=== PATIENT | female | born 1965 ===

== ENCOUNTER 2025-01-23 15:38 | Emergency (ER) | payer MEDICAID, SELFPAY ==
--- NOTE | ~2025-01-23 | XR_ITS ---
EXAMINATION: 2 view XR CHEST CLINICAL INFORMATION: pain COMPARISON: December 23, 2018 TECHNIQUE: 2 views of the chest were obtained. FINDINGS: No significant abnormality is noted involving the heart, lungs, mediastinum, bony thorax or soft tissues. XR/XR chest 2V IMPRESSION: Unremarkable examination. Electronically signed by: Brian Durham MD 01/23/2025 04:34 PM EDT
[2025-01-23 15:56] VITALS: BP 134/68; PULSE 90; RESP 22; TEMP 36.6; O2SAT 98; BMI 24.8
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
[2025-01-23 16:28] LABS: MANUAL DIFF FLAG NO
[2025-01-23 16:30] LABS: Hematocrit 34.8 % (37.0-47.0); Hemoglobin 11.8 g/dl (12.0-16.0); Imm Gran Abs Auto 0.01 X10*3/uL (0.00-0.03); Imm Gran Pct Auto 0.1 % (0.0-0.4); Lymphocytes Absolute Auto 3.3 X10*3/uL (1.2-4.9); Mean Corpuscular HGB Conc 33.9 g/dl (31.0-35.0); Mean Corpuscular Hemoglobin 31.5 pg (27.0-33.0); Mean Corpuscular Volume 92.8 fL (80.0-98.0); NRBC Abs Auto 0.000 X10*3/uL (0.0-0.012); NRBC Pct Auto 0.0 /100WBC (0.0-0.2); Platelet Count 293 X10*3/uL (160-400); Red Blood Count 3.75 X10*6/uL (4.20-5.50); White Blood Count 7.0 X10*3/uL (4.8-10.8)
[2025-01-23 16:43] LABS: Anion Gap 11 (12-20); Blood Urea Nitrogen 15 mg/dL (9-16); Calcium 8.9 mg/dL (8.4-10.2); Carbon Dioxide 26 mmol/L (22-29); Chloride 112 mmol/L (96-108); Creatinine Clr Calc Pharmacy 106.3; Estimated Glomerular Filt Rate > 60; Potassium 3.7 mmol/L (3.3-5.1); Sodium 145 mmol/L (135-145)
[2025-01-23 16:52] LABS: B Type Natriuretic Peptide 127 pg/mL (<100)
[2025-01-23 16:59] VITALS: BP 133/78; PULSE 75; RESP 20; TEMP 36.6; O2SAT 97
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
[2025-01-23 17:06] LABS: Resp Syncy Virus RNA Qual PCR NEGATIVE (Negative); SARS COV2 PCR INHOUSE NEGATIVE (Negative)
[2025-01-23] MEDS: Albuterol Sulfate 2.5 MG, Albuterol/Iprat 2.5/0.5MG 3 ML 3 ML INHALE (18:10)
[2025-01-23 18:12] VITALS: PULSE 76; RESP 14; O2SAT 98
[2025-01-23 18:34] VITALS: BP 132/68; PULSE 92; RESP 20; O2SAT 100
[2025-01-23 18:40] VITALS: BP 132/68; PULSE 92; RESP 20; TEMP 37.1; O2SAT 100
== END 2025-01-23 18:41 | disposition home or self-care (01) ==
PROVIDERS: Physician Assistant; Emergency Provider Emergency Medicine
DX: J45.901 Unspecified asthma with (acute) exacerbation (principal); R06.02 Shortness of breath; Z03.818 Encounter for observation for suspected exposure to other biological agents ruled out; R05.9 Cough, unspecified; F17.210 Nicotine dependence, cigarettes, uncomplicated
CPT/HCPCS: 36415; 71046; 80048; 83880; 85025; 87637; 94640; 99284; 99285

== ENCOUNTER → 2025-01-23 15:58 | Outpatient (BNV) | payer MEDICAID, SELFPAY | PROVIDERS: Visit Provider Radiology Diagnostic Radiology | DX: R07.9 Chest pain, unspecified (principal) | CPT/HCPCS: 71046 ==

== ENCOUNTER 2025-04-29 08:48 | Emergency (ER) | payer MEDICAID, SELFPAY ==
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
--- NOTE | ~2025-04-29 | XR_ITS ---
EXAMINATION: XR KNEE 4 OR MORE VIEWS LEFT HISTORY: pain, fall COMPARISON: There are no prior studies available for comparison. FINDINGS: Four views of the left knee are submitted. Osseous mineralization is normal. There is no fracture or dislocation. There is a small joint effusion. The soft tissues are unremarkable. XR/XR knee LT 4V IMPRESSION: Small joint effusion. Otherwise unremarkable examination of the left knee. Electronically signed by: John Camarillo MD 04/29/2025 09:15 AM EDT
[2025-04-29 08:51] VITALS: BP 114/62; PULSE 95; RESP 18; TEMP 36.7; O2SAT 96; BMI 24.2
--- NOTE | 2025-04-29 09:26 | ED_ITS ---
HPI - Extremity Injury (Lower) General Chief Complaint: Extremity Injury, Lower Stated Complaint: fell last night, L knee pain cant walk Time Seen by Provider: 04/29/25 09:11 Source: patient Mode of arrival: ambulatory Limitations: no limitations History of Present Illness ED Provider: DELFINO VILLEDA Narrative: 59 yo female with PMH of asthma here s/p fall over animal gate landing on L knee on hardwood floor. NO other injuries or headstrike. She reports she has issues with this knee in past it is always clicking but has not had a work up on it. She states she cannot bear weight on the knee. complaint: knee injury Onset (ago): day(s) (last night) Injury: Left: knee Type of Injury: blunt Place: home Severity: moderate Relieving factors: nothing Exacerbating factors: weight bearing, movement and palpation Context: direct blow Associated symptoms: swelling Other symptoms: none Related Data Previous Rx's ?Medication ?Instructions ?Recorded albuterol sulfate 90 mcg/actuation 2 puff inhalation Q 4-6H PRN 01/23/25 aerosol inhaler (Ventolin HFA) shortness of breath or wheezing #8.5 grams prednisone 20 mg tablet 40 mg (2 x 20 mg) PO DAILY # 10 tabs 01/23/25 hydrocodone 5 mg-acetaminophen 325 1 tab PO Q6H PRN pa in #10 tabs 04/29/25 mg tablet Allergies Allergy/AdvReac Type Severity Reaction Status Date / Time No Known Allergies Allergy Mild NONE Verified 04/29/25 08:55 Review of Systems Review of Systems: Constitutional : No Fever, No Chills Musculoskeletal : positive joint pain, No Myalgias, pos Joint Swelling Skin : No Skin lacerations, No rash Neuro : No Weakness, No Numbness All other systems reviewed and are negative FOR[facility] Past Medical History Attestation statement: The following information was validated with the patient. Source: old records reviewed Social History Social History (Updated 04/29/25 @ 09:38 by Karina Monterroso DO) Patient Tobacco Use Status: Tobacco use Unknown Physical Exam Vital Signs: Vital Signs: Last Vital Signs Temp 98.0 F 04/29/25 08:51 Pulse 95 04/29/25 08:51 Resp 18 04/29/25 08:51 BP 114/62 04/29/25 08:51 Pulse Ox 96 04/29/25 08:51 O2 Del Method Room Air 04/29/25 08:51 BMI result Body Mass Index 24.2 Appearance: Alert. Oriented X3. No acute distress. Eyes: Pupils equal, round and reactive to light. ENT: Pharynx normal. Neck: Normal inspection. CVS: Pulses normal. Respiratory: No respiratory distress. Abdomen: atramatic Skin: Skin warm and dry. Normal skin color. Extremities: No lower extremity edema. L knee distal NV intact, small effusion, no ttp along femur or hip, unable to test lig due to pain, no crepitus felt, able to make a quad muscle and no divot felt, able to plantar and dorsiflex foot Neuro: Oriented X 3. No motor deficit. No sensory deficit. Medical Decision Making Medical Decision Making MDM Narrative: 59 yo female with isolated L knee injury after a fall she will get xray- she is NV intact, I cannot test lig due to pain. I suspect some internal derangement will place on crutches in brenda wrap and short course analgesia with PCP follow up. No signs of tendon rupture on exam. Differential Diagnosis Differential Diagnoses: The differential diagnosis associated with the presentation includes sprain, strain, contusion Independent Interpretation I performed an independent interpretation of an: Plain X-Ray (no fx) Radiology Impression Discussion of test interpretation with radiology: I have reviewed the radiologist's reading. External Record Review External record reviewed: Outpatient record Prescription Management I considered prescription management with: Pain Medication Discharge Plan Discharge Clinical Impression: Left knee sprain Qualifiers: Encounter type: initial encounter Involved ligament of knee: unspecified ligament Qualified Code(s): S83.92XA - Sprain of unspecified site of left knee, initial encounter Patient Disposition: Home, Self-Care Instructions: Knee Sprain (ED), How to Use an Elastic Bandage (ED) Additional Instructions: use crutches as needed brenda wrap for 5 days please return for any worsening symptoms or concerns please follow up with your doctor as you may need a MRI of your knee gentle range of motion exercises as tolerated after 48 hours Prescriptions: New hydrocodone-acetaminophen 5-325 mg tablet 1 tab PO Q6H PRN (Reason: pain) Qty: 10 0RF Rx Instructions: partial fill okay; Partial Fill upon patient request. No Action prednisone 20 mg tablet 40 mg PO DAILY Qty: 10 0RF albuterol sulfate [Ventolin HFA] 90 mcg/actuation HFA aerosol inhaler 2 puff inhalation Q4-6H PRN (Reason: shortness of breath or wheezing) Qty: 8.5 0RF Print Language: [place]ian
[2025-04-29] MEDS: HYDROcodone Bit/Acetam 5/325 TABLET 1 TAB PO (09:37)
[2025-04-29 10:18] VITALS: BP 114/62; PULSE 95; RESP 18; TEMP 36.7; O2SAT 96
--- OUTSIDE RECORDS SUMMARY | 2025-04-29 11:20 | XMS_ITS | Encounter Summary ---
Author Organization [facility] Address [address] [place] [id number] Phone Care Team Providers Care Electrophysiology Technician Name Role Phone Rolan Dominguez MD Primary Care Provider [phone] Encounter Details Date Type Department Care Team (Late st Contact Info) Description 04/13/2024 Procedure [facility] [address] [place] [address] Social History Tobacco Use Types Packs/Day Years Used Date Smoking Tobacco: Every Day Cigarettes 0.5 39.8 Started: 1985 Smokeless Tobacco: Never Comments:quit with patches i n past. Alcohol Use Standard Drinks/Week Comments Never 0 [...] as food, clothing, or medical care? No 01/12/2024 In the past 12 months have y ou been in a relationship with a person who hurts, threatens, or tries to control you? No 01/12/2024 Are you denied basic needs s uch as food, clothing, or medical care? No 01/12/2024 In the past 12 months have y ou been in a relationship with a person who hurts, threatens, or tries to control you? No 01/12/2024 Comments No Sex and Gender Information Value Date Recorded Sex Assigned at Female 01/12/2024 6:23 PM EDT Legal Sex Female 9:39 PM EDT Gender Identity Female 01/12/2024 6:23 PM EDT Sexual Orientation Don't know 01/12/2024 6: 23 PM EDT documented as of this encounter Plan of Treatment Upcoming Encounters Date Type Department Care Team (Late st Contact Info) Description 04/30/2025 2:30 PM EDT Office Visit [facility] [address] [place] [address] Rolan Dominguez MD [address] [place] [address], [address] [place] [address] Aimee Thomas, PT [address] [place] [address] 05/09/2025 3:15 PM EDT Office Visit [facility] [address] [place] [address] Rolan Dominguez MD [address] [place] [address], [address] [place] [address] Aimee Thomas, PT [address] [place] [id number] 05/16/2025 3:15 PM EDT Office Visit [facility] [address] [place] [address] Rolan Dominguez MD [address] [facility], [address] [place] [address] Aimee Thomas, PT [address] [place] [id number] 05/22/2025 3:15 PM EDT Office Visit [facility] [address] [place] [address] Rolan Dominguez MD [address] [facility] [place] [address] Aimee Thomas, PT [address] [place] [address] documented as of this encounter Visit Diagnoses Not on filedocumented in this encounter Additional Health Concerns Infection Onset Date Last Indicated Resolved Time 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 It is not the complete legal health record.[facility]
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
--- OUTSIDE RECORDS SUMMARY | 2025-04-29 11:20 | XMS_ITS | Encounter Summary ---
Author Organization [facility] Address [address] [place] [address] Phone Care Team Providers Care Clinical Case Manager Name Role Phone Rolan Dominguez MD Primary Care Provider [phone] Reason for Visit * Reason Onset Date Comments URGENT REFERRAL 02/01/2025 Encounter Details Date Type Department Care Team (Late st Contact Info) Description 02/01/2025 Telephone [facility] General Surgical Care [address] [place] [address] Rolan Dominguez MD [address] [facility] [place] [address] [email or web address] URGENT REFERRAL Social History Tobacco Use Types Packs/Day Years [...] as of this encounter Progress Notes * Mary Ann Pappas - 02/01/2025 12:36 PM EDT Patient being referred for infected cyst. Please advise ad the only slots open are Urgent slots. documented in this encounter Plan of Treatment Upcoming Encounters Date Type Department Care Team (Late st Contact Info) Description 04/30/2025 2:30 PM EDT Office Visit [facility] [address] [place] [address] [place] [address] Rolan Dominguez MD [address] [place] [address], [address] [place] [address] Aimee Thomas, PT [address] [place] [address] 05/09/2025 3:15 PM EDT Office Visit [facility] [address] [place] [address] Rolan Dominguez MD [address] [place] [address], [address] [place] [address] Aimee Thomas, PT [address] [place] [address] 05/16/2025 3:15 PM EDT Office Visit [facility] [address] [place] [address] Rolan Dominguez MD [address] [place] [address], [address] [place] [address] Aimee Thomas, PT [address] [place] [address] 05/22/2025 3:15 PM EDT Office Visit [facility] [address] [place] [address] Rolan Dominguez MD [address] [place] [address], [address] [place] [address] Aimee Thomas, PT [address] [place] [address] documented as of this encounter Visit Diagnoses Not on filedocumented in this encounter Additional Health Concerns Infection Onset Date Last Indicated Resolved Time MRSA 01/12/2024 01/12/2024 Assessment Noted Time PHQ-2 Depression Total Score: 0 08/02/19 18 8:16 AM EST documented as of this encounter Care Teams Clinical Case Manager Relationship Specialty Start Date End Date Rolan Dominguez MD [address] [place] [address], [address] [place] [phone] [email or web address] PCP - General Internal Medicine 09/05/19 documented as of this encounter Additional Source Comments The information contained in this document represents components of the legal health record. It is not the complete legal health record.[facility]
--- OUTSIDE RECORDS SUMMARY | 2025-04-29 11:20 | XMS_ITS | Clinical Summary ---
Author Organization [employer] Address [address] [place] [address] Care Team Providers Care Colored Liquid Plastic Applier Name Role Phone Unavailable Primary Care Provider Unavailabl e Social History Tobacco Use Types Packs/Day Years Used Date Smoking Tobacco: Never Assessed Comments Unknown Sex and Gender Information Value Date Recorded Sex Assigned at Female 12/18/2024 9:19 AM EDT Legal Sex Female 9:19 AM EDT Gender Identity Female 12/18/2024 9:19 AM EDT Sexual Orientation Straight 12/18/2024 9: 19 AM EDT Plan of Treatment Health Maintenance Due Date Last Done Comments CT Colonography 1966 Depression Screening 1966 FIT DNA/Cologuard 1966 FIT 1966 FOBT 1966 HIV Screening 1966 SDOH Screening 1966 Sigmoidoscopy 1966 Disability Screening 1966 Alcohol/Substance Use Screening 1978 Tobacco Screening 1978 Hepatitis C Screening 1984 Hepatitis B Vaccines (1 of 3 - 19+ 3-dose series) 1985 Pneumococcal Vaccine: 50+ Years (1 of 2 - PCV) 1985 Pap Smear 1987 Cervical Cancer Screening 1996 HPV/Cotest 1996 Zoster Vaccines (1 of 2) 2016 DTaP/Tdap/Td Vaccines (1 - Tdap) 04/14/2024 04/13/2024 COVID-19 Vaccine (3 - 2024- season) 2025 05/07/2021, 04/09/2021 Influenza Vaccine (#1) 2025 , 04/02/2016, 03/27/2016, Additional history exists Mammogram 09/19/2026 09/19/2024, 09/19/2024 Colonoscopy 01/07/2035 01/07/2025, 01/07/2025 Colorectal Cancer Screening 01/07/2035 RSV Patients and Patients Aged 60 years or older (1 - 1-dose 75+ series) 2041 HIB Vaccines Aged Out No longer eligi ble based on patient's age to complete this topic HPV Vaccines Aged Out No longer eligi ble based on patient's age to complete this topic Hepatitis A Vaccines Aged Out No long er eligible based on patient's age to complete this topic IPV Vaccines Aged Out No longer eligi ble based on patient's age to complete this topic Meningococcal B Vaccine Aged Out No l onger eligible based on patient's age to complete this topic Meningococcal Vaccine Aged Out No myles yenny eligible based on patient's age to complete this topic RSV under 20 months Aged Out No longe r eligible based on patient's age to complete this topic Rotavirus Vaccines Aged Out No longer eligible based on patient's age to complete this topic Insurance [facility]
--- OUTSIDE RECORDS SUMMARY | 2025-04-29 11:20 | XMS_ITS | Encounter Summary ---
Author Organization [facility] Address [address] [place] [address] Phone Care Team Providers Care Lead Pressman [employer] Name Role Phone Rolan Dominguez MD Primary Care Provider [phone] Encounter Details Date Type Department Care Team (Late st Contact Info) Description 01/07/2025 Procedure Pass [facility] Endoscopy Admitting Dept Virtual Department [address] [place] [address] Social History Tobacco Use Types Packs/Day Years [...] PM EDT documented as of this encounter Functional Status * Calculated C-SSRS Risk Score (Lifetime/Recent) Answer Date of Assessment Author No Risk Indicated 01/07/2025 11:05 AM EDT Abi Nettles RN * [place] Suicide Severity Rating Scale (Screener/Recent Self-Report) Question Answer Date of Assessment Author 1. Wish to be (Past 1 Month) No 01/07/2025 11:05 AM EDT Abi Nettles RN 2. Non-Specific Active Suicidal Thoughts (Past 1 Month) No 01/07/2025 11:05 AM EDT Abi Nettles RN 6. Suicidal Behavior (Lifetime) No 01/07/2025 11:05 AM EDT Abi Nettles RN documented as of this encounter Plan of Treatment Upcoming Encounters Date Type Department Care Team (Late st Contact Info) Description 04/30/2025 2:30 PM EDT Office Visit [facility] [address] [place] [address] Rolan Dominguez MD [address] [place] [address], [address] [place] [address] Aimee Thomas, PT [address] [place] [address] 05/09/2025 3:15 PM EDT Office Visit [facility] [address] [place] [address] Rolan Dominguez MD [address] [place] [address], [address] [place] [address] Aimee Thomas, PT [address] [place] [address] 05/16/2025 3:15 PM EDT Office Visit [facility] [address] [place] [address] Rolan Dominguez MD [address] [place] [address], [address] [place] [address] Aimee Thomas, PT [address] [place] [address] 05/22/2025 3:15 PM EDT Office Visit [facility] [address] [place] [address] Rolan Dominguez MD [address] [place] [address], [address] [place] [address] Aimee Thomas, PT [address] [place] [address] documented as of this encounter Visit Diagnoses Not on filedocumented in this encounter Additional Health Concerns Infection Onset Date Last Indicated Resolved Time MRSA 01/12/2024 01/12/2024 Assessment Noted Time PHQ-2 Depression Total Score: 0 08/02/19 18 8:16 AM EST documented as of this encounter Care Teams Lead Pressman [employer] Relationship Specialty Start Date End Date Rolan Dominguez MD [address] [place] [address], [address] [place] [address] [email or web address] PCP - General Internal Medicine 09/05/19 documented as of this encounter Additional Source Comments The information contained in this document represents components of the legal health record. It is not the complete legal health record.[facility]
--- OUTSIDE RECORDS SUMMARY | 2025-04-29 11:20 | XMS_ITS | Encounter Summary ---
Author Organization [facility] Address [address] [place] [address] Phone Care Team Providers Care Maintenance Dispatcher Name Role Phone Rolan Dominguez MD Primary Care Provider [phone] Encounter Details Date Type Department Care Team (Late st Contact Info) Description [facility] External System Generated Encounter [address] [place] [address] Unknown, Unknown, Social History Tobacco Use Types Packs/Day Years [...] Description 04/30/2025 2:30 PM EDT Office Visit [facility] [address] [place] [address] Rolan Dominguez MD [address] [place] [address], [address] [place] [address] Aimee Thomas, PT [address] [place] [address] 05/09/2025 3:15 PM EDT Office Visit [facility] [address] [place] [address] Rolan Dominguez MD [address] [place] [address], [address] [place] [address] Aimee Thomas, PT [address] [place] [address] 05/16/2025 3:15 PM EDT Office Visit [facility] [address] [place] [address] Rolan Dominguez MD [address] [facility] [place] [address] Aimee Thomas, PT [address] [place] [address] 05/22/2025 3:15 PM EDT Office Visit [facility] [address] [place] [address] Rolan Dominguez MD [address] [facility] [place] [address] Aimee Thomas, PT [address] [place] [address] documented as of this encounter Visit Diagnoses Not on filedocumented in this encounter Additional Health Concerns Infection Onset Date Last Indicated Resolved Time MRSA 01/12/2024 01/12/2024 Assessment Noted Time PHQ-2 Depression Total Score: 0 08/02/19 18 8:16 AM EST documented as of this encounter Care Teams Maintenance Dispatcher Relationship Specialty Start Date End Date Rolan Dominguez MD [address] [place] [address], [address] [place] [address] PCP - General Internal Medicine 09/05/19 documented as of this encounter Additional Source Comments The information contained in this document represents components of the legal health record. It is not the complete legal health record.[facility]
--- OUTSIDE RECORDS SUMMARY | 2025-04-29 11:20 | XMS_ITS | Encounter Summary ---
Author Organization [facility] Address [address] [place] [address] Phone Care Team Providers Care Margin Trimmer Name Role Phone Roaln Dominguez MD Primary Care Provider [phone] Rolan Dominguez MD Unavailable [phone] Rolan Dominguez MD Unavailable [phone] Encounter Details Date Type Department Care Team (Late st Contact Info) Description 10/05/2019 Procedure Pass [facility] Endoscopy Admitting Dept Virtual Department [address] [place] [address] Social History Tobacco Use Types Packs/Day Years Used Date Smoking Tobacco: Every Day Cigarettes 0.5 26 Smokeless Tobacco: Never Comments:quit with patches i [...] Answer Date Recorded Are you interested in help w ith more adult education (for example, completing high school, GED, job training, learning the Polish language, technical skills, or developing parenting skills)? I choose not to answer 12/06/2018 Are you concerned about learning? Not on file 12/06/2018 Not on file 12/06/2018 Not on file 12/06/2018 Food Answer Date Recorded Within the past [...] appointments or from getting medications? No 12/06/2018 Comments Unknown Sex and Gender Information Value [...] Description 04/30/2025 2:30 PM EDT Office Visit [facility] [address] [place] [address] Rolan Dominguez MD [address] [place] [address], [address] [place] [address] Aimee Thomas, PT [address] [place] [address] 05/09/2025 3:15 PM EDT Office Visit [facility] [address] [place] [address] Rolan Dominguez MD [address] [place] [address], [address] [place] [address] Aimee Thomas, PT [address] [place] [address] 05/16/2025 3:15 PM EDT Office Visit [facility] [address] [place] [address] Rolan Dominguez MD [address] [place] [address], [address] [place] [address] Aimee Thomas, PT [address] [place] [address] 05/22/2025 3:15 PM EDT Office Visit [facility] [address] [place] [address] Rolan Dominguez MD [address] [facility] [place] [address] Aimee Thomas, PT [address] [place] [address] documented as of this encounter Visit Diagnoses Not on filedocumented in this encounter Additional Health Concerns Infection Onset Date Last Indicated Resolved Time MRSA 01/12/2024 01/12/2024 Assessment Noted Time PHQ-2 Depression Total Score: 0 08/02/19 18 8:16 AM EST documented as of this encounter Care Teams Margin Trimmer Relationship Specialty Start Date End Date Rolan Dominguez MD [address] [facility] [place] [address] PCP - General Internal Medicine 09/05/19 Rolan Dominguez MD [address] [facility] [place] [address] Insurance Assigned Provider 11/28/19 06/29/20 Rolan Dominguez MD [address] [facility] [place] [address] Insurance Assigned Provider 11/01/20 04/02/23 documented as of this encounter Additional Source Comments The information contained in this document represents components of the legal health record. It is not the complete legal health record.[facility]
== END 2025-04-29 10:18 | disposition home or self-care (01) ==
LOC: HO.ED 09:53
PROVIDERS: Emergency Provider Emergency Medicine; PCP Pediatrics
DX: S83.92XA Sprain of unspecified site of left knee, initial encounter (principal); W01.0XXA Fall on same level from slipping, tripping and stumbling without subsequent striking against object, initial encounter; Y93.9 Activity, unspecified; Y92.9 Unspecified place or not applicable; Y99.9 Unspecified external cause status; M25.562 Pain in left knee
CPT/HCPCS: 73564; 99284

== ENCOUNTER → 2025-04-29 08:56 | Outpatient (BNV) | payer MEDICAID, SELFPAY | PROVIDERS: Emergency Provider Emergency Medicine; PCP Pediatrics; Visit Provider Radiology Diagnostic Radiology | DX: M25.462 Effusion, left knee (principal) | CPT/HCPCS: 73564 ==